=== PATIENT | female | born 1975 | race Caucasian/White ===

== ENCOUNTER 2024-12-27 07:42 | Outpatient (CLI) | payer BC ==
[2024-12-27] MEDS ORDERED: Iopamidol 300 61% 100 ML VIAL FS ONE (12:25)
== END 2024-12-27 07:43 | disposition home or self-care (01) ==
LOC: CSHCT 07:42
PROVIDERS: ATTEND Nurse Practitioner Women's Health
DX: R19.03 Right lower quadrant abdominal swelling, mass and lump (principal); R10.2 Pelvic and perineal pain; N83.202 Unspecified ovarian cyst, left side; N83.201 Unspecified ovarian cyst, right side
CPT/HCPCS: 72194; Q9967